=== PATIENT | male | born 1960 | race American Indian/Alaskan Native ===

== ENCOUNTER 2017-02-14 02:32 | Emergency (ER) | payer MEDICAID ==
[2017-02-14 02:32] VITALS: BMI 26.9
[2017-02-14 02:46] VITALS: RESP 20; O2SAT 98
[2017-02-14 03:12] LABS: URINE BILIRUBIN NEGATIVE (NEGATIVE); URINE BLOOD NEGATIVE (NEGATIVE); URINE COLOR Straw (YELLOW); URINE GLUCOSE (UA) NORMAL (Normal); URINE KETONE NEGATIVE (NEGATIVE); URINE LEUKOCYTE ESTERASE NEG Leu/uL (Negative); URINE PROTEIN NEGATIVE (NEGATIVE); URINE UROBILINOGEN NORMAL mg/dL (0.2-1.0); WBC URINE < 1 /hpf (0-5)
--- NOTE | 2017-02-14 03:14 | C.PDOC ---
History Of Present Illness 56 y/o male, with past history of constipation, presents to ED with c/o abdominal pain and bloating sensation for 3 days. Patient reports he has not had bowel movement in 3 days. Pt has past h/o of chronic constipation and is on stool softeners with no relief. Denies fever, nausea, vomiting, or urinary symptoms. Notes he had normal colonoscopy and endoscopy "a few months ago." Otherwise, patient denies any other complaints. Time Seen by Provider: 02/14/17 02:50 Chief Complaint (Nursing): Abdominal Pain History Per: Patient History/Exam Limitations: no limitations Onset/Duration Of Symptoms: Days Current Symptoms Are (Timing): Still Present Location Of Pain/Discomfort: RLQ, Epigastric Radiation Of Pain To:: None Quality Of Discomfort: "Pain" Associated Symptoms: Constipation. denies: Fever, Nausea, Vomiting, Diarrhea, Urinary Symptoms Last Bowel Movement: Days Ago (3) Recent travel outside of the [place]: No Past Medical History Reviewed: Historical Data, Nursing Documentation, Vital Signs Vital Signs: Last Vital Signs Temp 98.1 F 02/14/17 02:41 Pulse 62 02/14/17 02:41 Resp 20 02/14/17 02:41 BP 154/94 H 02/14/17 02:41 Pulse Ox 98 02/14/17 03:15 - Medical History PMH: Colonic Polyps, Gastritis, HTN, Hypercholesterolemia, Hyperlipidemia Surgical History: Endoscopy Family History: States: Unknown Family Hx - Social History Hx Alcohol Use: Yes Hx Substance Use: No - Immunization History Hx Tetanus Toxoid Vaccination: Yes Hx Influenza Vaccination: Yes Hx Pneumococcal Vaccination: Yes Review Of Systems Except As Marked, All Systems Reviewed And Found Negative. Constitutional: Negative for: Fever Cardiovascular: Negative for: Chest Pain Respiratory: Negative for: Cough, Shortness of Breath, Wheezing Gastrointestinal: Positive for: Abdominal Pain, Constipation. Negative for: Nausea, Vomiting, Diarrhea, Rectal Pain Genitourinary: Negative for: Dysuria, Hematuria Skin: Negative for: Rash Physical Exam - Physical Exam Appears: Non-toxic, No Acute Distress Skin: Normal Color, Warm, Dry Head: Atraumatic, Normacephalic Oral Mucosa: Moist Chest: Symmetrical Cardiovascular: Rhythm Regular Respiratory: Normal Breath Sounds, No Rales, No Rhonchi, No Wheezing Gastrointestinal/Abdominal: Tenderness (epigastric, RLQ), Distention, No Guarding, No Rebound Back: No CVA Tenderness Extremity: Normal ROM, Capillary Refill (< 2 sec. ) Neurological/Psych: Oriented x3, Normal Speech, Normal Cognition ED Course And Treatment - Laboratory Results Result Diagrams: 02/14/17 03:07 02/14/17 03:07 O2 Sat by Pulse Oximetry: 98 (RA) Pulse Ox Interpretation: Normal - Other Rad Abd XR X-Ray: Interpreted by Me, Viewed By Me Interpretation: Fecal impaction Progress Note: Labs, obstructive series x-ray ordered. Fleet enema and lactulose PO ordered- with 2 BM in ER. 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 - Scribe Statement The provider has reviewed the documentation as recorded by the Neil Robins Provider Scribe Attestation: All medical record entries made by the Ignacioibfrancy were at my direction and personally dictated by me. I have reviewed the chart and agree that the record accurately reflects my personal performance of the history, physical exam, medical decision making, and the department course for this patient. I have also personally directed, reviewed, and agree with the discharge instructions and disposition.
[2017-02-14 03:24] LABS: BILIRUBIN,TOTAL 0.4 mg/dL (0.2-1.3)
[2017-02-14 03:25] LABS: ALB/GLOB RATIO 1.3 (1.0-2.1); BASO % 0.5 % (0.0-2.0); CALCIUM 8.9 mg/dl (8.6-10.4); EOS # 0.3 K/uL (0.0-0.7); EOS % 5.1 % (0.0-4.0); HEMATOCRIT 39.6 % (35.0-51.0); LYMPH # 1.3 K/uL (1.0-4.3); LYMPH % 26.2 % (20.0-40.0); MEAN CELL VOLUME 92.2 fL (80.0-94.0); MEAN CORPUSCULAR HEMOGLOBIN 31.2 pg (27.0-31.0); MEAN CORPUSCULAR HGB CONC 33.8 g/dL (33.0-37.0); MEAN PLATELET VOLUME 8.1 fL (7.2-11.7); MONO # 0.5 K/uL (0.0-0.8); MONO % 9.5 % (0.0-10.0); NRBC % 0.1 % (0.0-2.0); RED CELL DISTRIBUTION WIDTH 13.5 % (11.5-14.5); TOTAL PROTEIN 7.3 g/dL (6.3-8.3); WHITE BLOOD COUNT 5.1 K/uL (4.8-10.8)
[2017-02-14 04:35] VITALS: BP 148/70; PULSE 81; TEMP 98
--- NOTE | 2017-02-14 08:34 | RAD ---
PROCEDURE: Radiographs of the chest and abdomen (obstructive series) HISTORY: abd pain, constipation COMPARISON: No prior. TECHNIQUE: AP radiograph of the chest, with upright and supine radiographs of the abdomen. FINDINGS: CHEST: Lungs: Clear. Cardiovascular: Normal size heart. No pulmonary vascular congestion. Pleura: No pleural fluid. No pneumothorax. Other findings: None. ABDOMEN AND PELVIS: Bowel: Nonobstructive bowel gas pattern. Extensive stool throughout the ascending colon. Free air: Not noted. Bones: The osseous structures demonstrate degenerative changes. Other findings: None. IMPRESSION: Nonobstructive bowel gas pattern. If there is continued suspicion of bowel obstruction, CT of the abdomen and pelvis should be obtained.
== END 2017-02-14 04:35 | disposition home or self-care (01) ==
LOC: C.ER 02:32
DX: K59.00 Constipation, unspecified (principal)

== ENCOUNTER 2017-03-18 14:57 | Emergency (ER) | payer MEDICAID ==
[2017-03-18 14:58] VITALS: BMI 26.9
[2017-03-18] MEDS ORDERED: Naproxen 550 mg Tab PO STA (15:38)
[2017-03-18] MEDS ORDERED: Naproxen 550 mg Tab PO ONE (15:41)
--- NOTE | 2017-03-18 15:56 | C.PDOC ---
History Of Present Illness Patient is a 56 year old male who presents to the ER with a complaint of right hand swelling that began on Sunday. Patient states he woke up with the swelling and denies trauma, Hx of similar episodes, and gout. (-) fever (-) change in sensation Time Seen by Provider: 03/18/17 15:26 Chief Complaint (Nursing): Upper Extremity Problem/Injury History Per: Patient History/Exam Limitations: no limitations Onset/Duration Of Symptoms: Days (Since Sunday) Current Symptoms Are (Timing): Still Present Quality: Other (Swelling) Recent travel outside of the [place]: No Past Medical History Reviewed: Historical Data, Nursing Documentation, Vital Signs Vital Signs: Last Vital Signs Temp 98.2 F 03/18/17 16:15 Pulse 62 03/18/17 16:15 Resp 16 03/18/17 16:15 BP 136/72 03/18/17 16:15 Pulse Ox 98 03/18/17 19:36 - Medical History PMH: Colonic Polyps, Gastritis, HTN, Hypercholesterolemia, Hyperlipidemia Surgical History: Endoscopy Family History: States: Unknown Family Hx - Social History Hx Alcohol Use: Yes Hx Substance Use: No - Immunization History Hx Tetanus Toxoid Vaccination: Yes Hx Influenza Vaccination: Yes Hx Pneumococcal Vaccination: Yes Review Of Systems Musculoskeletal: Positive for: Hand Pain (Right swelling) Physical Exam - Physical Exam Appears: Well, Non-toxic, No Acute Distress Skin: Warm, Dry Head: Atraumatic, Normacephalic Eye(s): bilateral: Normal Inspection, EOMI Nose: Normal Oral Mucosa: Moist Chest: Symmetrical, No Tenderness Respiratory: No Accessory Muscle Use, Other (Speaking in complete sentences) Extremity: Normal ROM, No Tenderness (no obvious tenderness), Capillary Refill ( < 2sec), Swelling (Dorsal aspect of right hand), Other (Erythema to dorsal aspect of right hand w/ less then 1 cm mobile mass.) Pulses: Left Radial: Normal, Right Radial: Normal Neurological/Psych: Oriented x3, Normal Speech, Normal Motor, Normal Sensation, Other (No focal deficits) ED Course And Treatment O2 Sat by Pulse Oximetry: 98 (Room air) Pulse Ox Interpretation: Normal Progress Note: Anaprox and tetanus vaccine administered. X-ray of the right hand ordered, results were negative for abnormalities. Patient was advised on the signs and concerns for infection including increased swelling or redness, advised to follow up with PMD and to return to the ER if symptoms worsen. Case discussed with Dr Richey, agreed upon plan and treatment. Disposition - Disposition Referrals: Mayito Hendrickson MD [Staff Provider] - Disposition: HOME/ ROUTINE Disposition Time: 15:54 Condition: STABLE Additional Instructions: Wound check in 2 days or sooner if symtpoms persist or worsen including fever, increased swelling or redness. Prescriptions: Clindamycin [Cleocin] 300 mg PO Q6 #28 cap Naproxen [Naprosyn] 1 tab PO BID PRN #20 tab PRN Reason: Pain Instructions: Cellulitis (ED) - Clinical Impression Clinical Impression: Cellulitis, Ganglion cyst - Scribe Statement The provider has reviewed the documentation as recorded by the Scribfrancy Hanley All medical record entries made by the Ignacioibfrancy were at my direction and personally dictated by me. I have reviewed the chart and agree that the record accurately reflects my personal performance of the history, physical exam, medical decision making, and the department course for this patient. I have also personally directed, reviewed, and agree with the discharge instructions and disposition.
[2017-03-18 16:16] VITALS: BP 136/72; PULSE 62; RESP 16; TEMP 98.2
--- NOTE | 2017-03-18 17:10 | RAD ---
Right hand three views History: Pain. Comparison: None available. Findings: Productive change at the distal tuft of the 1st through 4th digits, nonspecific. Mild narrowing of the 2nd through 5th PIP and DIP joint spaces. Mild narrowing of the 1st carpometacarpal joint space. Mild to moderate narrowing of the radiocarpal joint space. Mild productive change at the ulnar tuberosity. No evidence for acute displaced fracture or dislocation. Impression: Productive change at the distal tuft of the 1st through 4th digits, nonspecific. Mild narrowing of the 2nd through 5th PIP and DIP joint spaces. Mild narrowing of the 1st carpometacarpal joint space. Mild to moderate narrowing of the radiocarpal joint space. Mild productive change at the ulnar tuberosity. No evidence for acute displaced fracture or dislocation. If pain persists, consider MRI.
[2017-03-18 19:29] VITALS: O2SAT 98
== END 2017-03-18 16:16 | disposition home or self-care (01) ==
LOC: C.ER 14:57
DX: L03.113 Cellulitis of right upper limb (principal); M67.441 Ganglion, right hand

== ENCOUNTER 2017-06-21 00:41 | Emergency (ER) | payer SELFPAY ==
[2017-06-21 00:41] VITALS: BMI 26.9
[2017-06-21 01:13] VITALS: RESP 16
[2017-06-21] MEDS ORDERED: Iohexol 240 (50 ml) PO STA (02:38)
[2017-06-21] MEDS ORDERED: Sodium Chloride 0.9% 1,000 ML IV ONE (02:38)
--- NOTE | 2017-06-21 02:38 | C.PDOC ---
History Of Present Illness 57 y/o male presents to the ER c/o lack of bowel movements for a week. Patient notes he gave himself an enema and he saw blood when wiping after 5 days ago. Patient now feels bloated with mild nausea. Denies fever, chills, vomiting, or any other complaints. pt had colonoscopy in last few years. Time Seen by Provider: 06/21/17 02:14 Chief Complaint (Nursing): Abdominal Pain History Per: Patient History/Exam Limitations: no limitations Onset/Duration Of Symptoms: Days Current Symptoms Are (Timing): Still Present Severity: Mild Radiation Of Pain To:: None Associated Symptoms: Nausea. denies: Fever, Chills, Vomiting, Diarrhea, Urinary Symptoms Exacerbating Factors: None Alleviating Factors: None Recent travel outside of the [place]: No Additional History Per: Patient Past Medical History Reviewed: Historical Data, Nursing Documentation, Vital Signs Vital Signs: Last Vital Signs Temp 98.2 F 06/21/17 05:09 Pulse 56 L 06/21/17 05:09 Resp 16 06/21/17 05:09 BP 149/94 H 06/21/17 05:09 Pulse Ox 97 06/22/17 09:51 - Medical History PMH: Colonic Polyps, Gastritis, HTN, Hypercholesterolemia, Hyperlipidemia Denies: Chronic Kidney Disease Surgical History: Endoscopy Family History: States: Unknown Family Hx - Social History Hx Alcohol Use: No Hx Substance Use: No - Immunization History Hx Tetanus Toxoid Vaccination: Yes Hx Influenza Vaccination: Yes Hx Pneumococcal Vaccination: Yes Review Of Systems Constitutional: Negative for: Fever, Chills Gastrointestinal: Positive for: Nausea, Constipation (Bowel incontinence), Other (bloating). Negative for: Vomiting, Abdominal Pain Skin: Negative for: Rash Physical Exam - Physical Exam Appears: Non-toxic, No Acute Distress Skin: Warm, Dry Head: Atraumatic, Normacephalic Cardiovascular: Rhythm Regular Respiratory: Normal Breath Sounds, No Rales, No Rhonchi, No Wheezing Gastrointestinal/Abdominal: Soft, No Tenderness, No Distention, Other (Mildly bloated) Rectal: No Other (No stool in vault, no bleeding noted. 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 EXAM DATE/TIME: Exam ordered 06/21/2017 2:38 AM. CLINICAL HISTORY: 57 years old, male; Pain; Abdominal pain; Prior surgery; Surgery type: Back and hernia surgery;. Patient HX: 11-06-16; Additional info: Abd pain. TECHNIQUE: Axial computed tomography images of the abdomen and pelvis with intravenous contrast. All CT. scans at this facility use one or more dose reduction techniques, viz. : automated exposure control;. ma/kV adjustment per patient size (including targeted exams where dose is matched to indication; i.e. head); or iterative reconstruction technique. Coronal and sagittal reformatted images were created and reviewed. CONTRAST: 100 mL of [id number] administered intravenously. COMPARISON: No relevant prior studies available. FINDINGS: Lower thorax: No acute findings. ABDOMEN: Liver: Mild fatty liver. Gallbladder and bile ducts : Unremarkable. No calcified stones. No ductal dilation. Pancreas: Unremarkable. No mass. No ductal dilation. Spleen: Unremarkable. No splenomegaly. Adrenals: Unremarkable. No mass. Kidneys and ureters: Low- density structures in both kidneys are probably cysts however are not. completely characterized. No hydronephrosis. Stomach and bowel: Moderate fecal retention. Diverticulosis no diverticulitis. No obstruction. Appendix: No findings to suggest acute appendicitis. PELVIS: Bladder: Unremarkable. No mass. Reproductive: Apparent right scrotal hydrocele. ABDOMEN and PELVIS: Intraperitoneal space: Unremarkable. No free air. No significant fluid collection. Bones/joints: Partial fusion sacroiliac joints. Degenerative change in the spine. Prior left. laminectomies at L4 and L5 No acute fracture. No dislocation. Soft tissues: Previous inguinal herniorrhaphies. Vasculature: Unremarkable. No abdominal aortic aneurysm. Lymph nodes: Unremarkable. No enlarged lymph nodes. IMPRESSION: 1. Moderate fecal retention. 2. Mild fatty liver. Medical Decision Making Medical Decision Making: Impression: 57 y/o male presents to the ER c/o lack of bowel movements for a week. Plans: * CT Abd/ pel w/ * Omnipaque * Enulose * Zofran * IV fluids 558 am discussed with pt findings of constipation on ct scan. pt advised to increase fluid and fiber intake and f/u in medical clinic. will d/c with lactulose. Disposition Counseled Patient/Family Regarding: Studies Performed, Diagnosis, Need For Followup, Rx Given - Disposition Referrals: [facility] [Outside] Disposition: HOME/ ROUTINE Disposition Time: 06:00 Condition: STABLE Additional Instructions: Drink more fluids; water and prune juice recommended. Eat more fruits and vegetables, increase fiber in diet- suggest Benefiber or Metamucil. Please follow up in clinic. Return to ER for any worsening of symptoms or other concerns. Prescriptions: Lactulose 20 gm PO DAILY #120 ml Instructions: Constipation (ED), High Fiber Diet (ED) Forms: [facility] (Persian), General Discharge Instructions - Clinical Impression Clinical Impression: Abdominal bloating, Constipation - Scribe Statement The provider has reviewed the documentation as recorded by the Scribe Tino thomson All medical record entries made by the Scribe were at my direction and personally dictated by me. I have reviewed the chart and agree that the record accurately reflects my personal performance of the history, physical exam, medical decision making, and the department course for this patient. I have also personally directed, reviewed, and agree with the discharge instructions and disposition.
[2017-06-21] MEDS ORDERED: Sodium Chloride 0.9% 1,000 ML ONE (03:05)
[2017-06-21] MEDS ORDERED: Iohexol 240 (50 ml) ONE (03:05)
[2017-06-21 03:14] LABS: BASO % 0.6 % (0.0-2.0); EOS # 0.4 K/uL (0.0-0.7); EOS % 6.4 % (0.0-4.0); HEMATOCRIT 44.5 % (35.0-51.0); LYMPH # 1.6 K/uL (1.0-4.3); LYMPH % 25.6 % (20.0-40.0); MEAN CELL VOLUME 92.5 fL (80.0-94.0); MEAN CORPUSCULAR HEMOGLOBIN 30.7 pg (27.0-31.0); MEAN CORPUSCULAR HGB CONC 33.2 g/dL (33.0-37.0); MEAN PLATELET VOLUME 7.9 fL (7.2-11.7); MONO # 0.6 K/uL (0.0-0.8); MONO % 9.9 % (0.0-10.0); NRBC % 0.1 % (0.0-2.0); RED CELL DISTRIBUTION WIDTH 13.8 % (11.5-14.5); WHITE BLOOD COUNT 6.4 K/uL (4.8-10.8)
[2017-06-21 03:41] LABS: CHLORIDE 102 mmol/L (98-107); SODIUM 141 mmol/L (132-148)
[2017-06-21 03:42] LABS: POTASSIUM 4.6 mmol/L (3.6-5.2)
[2017-06-21 03:44] LABS: ALB/GLOB RATIO 1.1 (1.0-2.1); ALKALINE PHOSPHATASE 75 U/L (38-126); ALT/SGPT 39 U/L (21-72); AST/SGOT 33 U/L (17-59); BILIRUBIN,TOTAL 0.7 mg/dL (0.2-1.3); BLOOD UREA NITROGEN 22 mg/dL (9-20); CARBON DIOXIDE 26 mmol/L (22-30); GFR AFRICAN-AMERICAN > 60; TOTAL PROTEIN 7.9 g/dL (6.3-8.3)
[2017-06-21 03:45] LABS: CALCIUM 8.9 mg/dl (8.6-10.4); GLUCOSE,RANDOM 89 mg/dL (75-110)
[2017-06-21] MEDS ORDERED: Iohexol 350mg/ml 100 ML ONE (04:35)
[2017-06-21 05:10] VITALS: BP 149/94; PULSE 56; TEMP 98.2
[2017-06-21 06:04] VITALS: O2SAT 97
--- NOTE | 2017-06-21 08:43 | CT ---
PROCEDURE: CT Abdomen and Pelvis with contrast HISTORY: abd pain COMPARISON: None. TECHNIQUE: Contrast dose: Omnipaque 350, 100 cc Radiation dose: Total exam DLP = 585 mGy-cm. This CT exam was performed using one or more of the following dose reduction techniques: Automated exposure control, adjustment of the mA and/or kV according to patient size, and/or use of iterative reconstruction technique. FINDINGS: LOWER THORAX: Unremarkable. LIVER: Mild diffuse fatty infiltration liver is appreciated without definite intrahepatic biliary dilatation or defined mass in the interval. GALLBLADDER AND BILE DUCTS: Moderate gallbladder distention is appreciated with the gallbladder otherwise unremarkable. PANCREAS: Unremarkable. No gross lesion or ductal dilatation. SPLEEN: Unremarkable. ADRENALS: Unremarkable. No mass. KIDNEYS AND URETERS: No hydronephrosis or perinephric reaction is appreciated bilaterally. There is no radiodense urolithiasis either. Stable 1.9 cm cyst seen at the midpole right kidney posteriorly with a tiny lucency identified at the lower pole too small to characterize. There are additional tiny lucencies identified in the left kidney upper mid and lower pole which are also too small to characterize. A stable dominant cyst in the left kidney measures 4 point 2 cm at the upper pole once again. 1.2 cm upper pole left renal cyst appears smaller at this time measure 1.0 cm. VASCULATURE: Unremarkable. No aortic aneurysm. BOWEL: Unremarkable. No obstruction. No gross mural thickening. Nonacute diverticular changes seen associated with the cecum and ascending colon as well as the proximal sigmoid colon. APPENDIX: Normal appendix. PERITONEUM: Unremarkable. No free fluid. No free air. LYMPH NODES: Unremarkable. No enlarged lymph nodes. BLADDER: Unremarkable. REPRODUCTIVE: Normal appearing prostate glands identified once again. . BONES: No acute fracture. OTHER FINDINGS: None. IMPRESSION: 1. No acute abdominal pelvic findings as discussed above. 2. No significant interval change in bilateral renal cystic changes as discussed above. Renal sonographic follow remains advised nevertheless bilaterally. 3. Nonacute right and left segmental colonic diverticular changes again evident.
== END 2017-06-21 06:42 | disposition home or self-care (01) ==
LOC: C.ER 00:41
DX: K59.00 Constipation, unspecified (principal); R14.0 Abdominal distension (gaseous)
CPT/HCPCS: 74177; 80053; 83690; 85025; 96374; 99284; G0328; J2405; J7040; Q9966; Q9967

== ENCOUNTER 2018-03-26 14:14 | Emergency (ER) | payer OTHER ==
[2018-03-26 14:14] VITALS: BMI 26.9
[2018-03-26 14:19] VITALS: O2SAT 99
--- NOTE | 2018-03-26 15:03 | C.PDOC ---
History Of Present Illness 58 yo male w/PMHx of HTN, high cholesterol, come in for evaluation of cold sx for past few weeks associated with nasal congestion, cough that became productive with thick green sputum. Pt also reports, intermittent epigastric discomfort, constipation for past month. Pt admits, no change in appetite or food intolerance, 'had beef ribs yesterday with beans and mashed potatoes. Today in AM, was going to work and had some stomach pain". otherwise, pt denies fever, chills, headache, dizziness, neck pain, drooling, dysphagia, dyspnea, SOB , wheezing, abd. p[ain, V/D, UTI sx. Ambulate to Ed for evaluation, not in nay apparent distress. Time Seen by Provider: 03/26/18 14:27 Chief Complaint (Nursing): Abdominal Pain History Per: Patient Past Medical History Reviewed: Historical Data, Nursing Documentation, Vital Signs Vital Signs: Last Vital Signs Temp 98.1 F 03/26/18 14:17 Pulse 71 03/26/18 14:17 Resp 16 03/26/18 14:17 BP 120/81 03/26/18 14:17 Pulse Ox 99 03/26/18 14:17 - Medical History PMH: Colonic Polyps, Gastritis, HTN, Hypercholesterolemia, Hyperlipidemia Denies: Chronic Kidney Disease Surgical History: Endoscopy Family History: States: Unknown Family Hx - Social History Hx Alcohol Use: No Hx Substance Use: No - Immunization History Hx Tetanus Toxoid Vaccination: Yes Hx Influenza Vaccination: Yes Hx Pneumococcal Vaccination: Yes Review Of Systems Except As Marked, All Systems Reviewed And Found Negative. Constitutional: Negative for: Fever, Chills ENT: Positive for: Nose Discharge, Nose Congestion. Negative for: Ear Discharge , Throat Pain, Throat Swelling Cardiovascular: Negative for: Chest Pain, Palpitations, Edema, Light Headedness Respiratory: Positive for: Cough, Sputum. Negative for: Shortness of Breath, Wheezing Gastrointestinal: Positive for: Abdominal Pain, Constipation. Negative for: Nausea, Vomiting, Diarrhea, Melena, Hematochezia, Hematemesis Genitourinary: Negative for: Dysuria Musculoskeletal: Negative for: Neck Pain, Back Pain Skin: Negative for: Rash Neurological: Negative for: Altered Mental Status, Headache, Dizziness Physical Exam - Physical Exam Appears: Well, Non-toxic, No Acute Distress Skin: Normal Color, Warm, Dry, No Rash Head: Normacephalic Eye(s): bilateral: PERRL Ear(s): Bilateral: Normal Nose: No Flaring, No Discharge Oral Mucosa: Moist, No Drooling Throat: No Erythema, No Drooling Neck: Trachea Midline, Supple Cardiovascular: Rhythm Regular, No Murmur, No JVD Respiratory: No Decreased Breath Sounds, No Accessory Muscle Use, No Stridor, No Wheezing Gastrointestinal/Abdominal: Soft, No Tenderness, No Distention, No Guarding, No Rebound Back: No CVA Tenderness Extremity: Normal ROM, No Deformity, No Swelling Neurological/Psych: Oriented x3, Normal Speech ED Course And Treatment O2 Sat by Pulse Oximetry: 99 Pulse Ox Interpretation: Normal - Radiology CXR: Interpreted by Me, Viewed By Me, Read By Radiologist - Other Rad ABd, 2 views X-Ray: Interpreted by Me, Viewed By Me Interpretation: (-) air-fluid level, (+) gas pattern c/w constipation Progress Note: On re-eval, pt is afebrile, hemodynamicaly stable. Non-toxic. Tolerate po well in ED. PulsEOx 99% RA. ENT: no acute findings. neck: Supple , (-) meningeal sign, (-) JVD. Lungs: CTA B/L, BS equal B/L. CVS: (+)S1S2, reg. ABd: benign, (-) guarding, (-) rebound. Back: (-) CVA tenderness. CXR- no acute finidngs. ABd, 2 views (-) air-fluid level, (+) constipation. Pt has clinical finidngs c/w bronchitis, constipation. Pt advised. ref. to F/u with PMD In 2-3 days for re-eval. return to ED if any worsening or new changes. Disposition Counseled Patient/Family Regarding: Studies Performed, Diagnosis, Need For Followup, Rx Given - Disposition Referrals: [facility] at [facility] [Outside] Disposition: HOME/ ROUTINE Disposition Time: 15:10 Condition: STABLE Additional Instructions: Encourage fluids Take medication as prescribed Follow up with PMD in 2-3 days for re-evaluation. return to ED if any worsening or new changes. Prescriptions: Albuterol HFA [Ventolin HFA 90 mcg/actuation (8 g)] 1 puff IH Q6 #1 inhaler Azithromycin [Zithromax] 250 mg PO DAILY #4 tab Polyethylene Glycol 3350 [Miralax] 17 gm PO DAILY #1 bottle Instructions: Acute Bronchitis, Constipation in Adults - Clinical Impression Clinical Impression: Constipation, Bronchitis
[2018-03-26] MEDS ORDERED: Albuterol 0.083% Inhal Sol (2.5 mg/3 mL) UD IH STA (15:12)
[2018-03-26] MEDS ORDERED: Albuterol 0.083% Inhal Sol (2.5 mg/3 mL) UD ONE (15:29)
--- NOTE | 2018-03-26 15:43 | RAD ---
HISTORY: Cough COMPARISON: 11/16/2016 and 09/04/2016 TECHNIQUE: Chest PA and lateral FINDINGS: LUNGS: No active pulmonary disease. PLEURA: No significant pleural effusion identified. No pneumothorax apparent. CARDIOVASCULAR: Normal. OSSEOUS STRUCTURES: Thoracic spondylosis-similar Right shoulder arthrosis -similar. Left asymmetrically widened AC joint no change since 2016 VISUALIZED UPPER ABDOMEN: Normal. OTHER FINDINGS: None. IMPRESSION: No active disease.
[2018-03-26 15:53] VITALS: BP 128/84; PULSE 60; RESP 16; TEMP 97.9
--- NOTE | 2018-03-26 16:52 | RAD ---
HISTORY: pain/constipation COMPARISON: 12/02/2016 FINDINGS: BOWEL: Stool retention.. No obstruction. No free air. BONES: Thoraco lumbar spondylosis. Bilateral hip arthrosis appear well corticated 1.5 cm ossification bordering the left greater trochanter- possibly old post trauma and no change OTHER FINDINGS: None. IMPRESSION: Stool retention. No obstruction. No free air Osseous findings as above. No interval pathology noted
== END 2018-03-26 15:52 | disposition home or self-care (01) ==
LOC: C.ER 14:14
DX: J40 Bronchitis, not specified as acute or chronic (principal); K59.00 Constipation, unspecified

== ENCOUNTER 2018-05-03 02:39 | Emergency (ER) | payer OTHER ==
[2018-05-03 02:39] VITALS: BMI 26.9
[2018-05-03 02:51] VITALS: O2SAT 99
[2018-05-03] MEDS ORDERED: Magnesium Citrate Oral SOL (300 ml) PO ONE (04:06)
--- NOTE | 2018-05-03 04:41 | C.PDOC ---
History Of Present Illness 58 year old male presents to the ED for evaluation of generalized abdominal pain. Patient reports he has not had a bowel movement in 5 days. He tried taking Miralax without improvement. Pt has a h/o of similar symptoms in the past. Reports eating "pasta and beef last night." Reports being refered to GI specialist by PMD, has not followed up yet. Patient denies fever, nausea, vomiting, chest pain. Time Seen by Provider: 05/03/18 03:01 Chief Complaint (Nursing): GI Problem History Per: Patient History/Exam Limitations: no limitations Onset/Duration Of Symptoms: Days (5) Current Symptoms Are (Timing): Still Present Additional History Per: Patient Past Medical History Reviewed: Historical Data, Nursing Documentation, Vital Signs Vital Signs: Last Vital Signs Temp 98.5 F 05/03/18 05:15 Pulse 69 05/03/18 05:15 Resp 18 05/03/18 05:15 BP 129/82 05/03/18 05:15 Pulse Ox 99 05/03/18 05:15 - Medical History PMH: Colonic Polyps, Gastritis, HTN, Hypercholesterolemia, Hyperlipidemia Denies: Chronic Kidney Disease Surgical History: Endoscopy Family History: States: Unknown Family Hx - Social History Hx Alcohol Use: No Hx Substance Use: No - Immunization History Hx Tetanus Toxoid Vaccination: Yes Hx Influenza Vaccination: Yes Hx Pneumococcal Vaccination: Yes Review Of Systems Constitutional: Negative for: Fever, Chills Gastrointestinal: Positive for: Abdominal Pain, Constipation. Negative for: Nausea, Vomiting Physical Exam - Physical Exam Appears: Non-toxic, No Acute Distress Skin: Normal Color, Warm, Dry Head: Atraumatic, Normacephalic Eye(s): bilateral: Normal Inspection, EOMI Nose: Normal Oral Mucosa: Moist Neck: Normal ROM, Supple Chest: Symmetrical, No Deformity, No Tenderness Cardiovascular: Rhythm Regular Respiratory: Normal Breath Sounds, No Rales, No Rhonchi, No Wheezing Gastrointestinal/Abdominal: Soft, Tenderness (diffusely) Extremity: Normal ROM, Capillary Refill (less than 2 seconds) Neurological/Psych: Oriented x3, Normal Speech, Normal Cognition ED Course And Treatment O2 Sat by Pulse Oximetry: 99 (on RA) Pulse Ox Interpretation: Normal Progress Note: Obstructive Series Abdomen ordered. Magnesium Citrate PO and Fleet [place] given. On re-examination, patient request to be discharged. REports he prefers to do the enema at home. Afebrile. TOlerating PO. He is advised to follow up with his PMD within 1-2 days for further evaluation and/or return to the ED if symptoms persist or worsen. 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 - Scribe Statement The provider has reviewed the documentation as recorded by the Scribe (Veronica Hendrickson) All medical record entries made by the Scribe were at my direction and personally dictated by me. I have reviewed the chart and agree that the record accurately reflects my personal performance of the history, physical exam, medical decision making, and the department course for this patient. I have also personally directed, reviewed, and agree with the discharge instructions and disposition.
[2018-05-03] MEDS ORDERED: Magnesium Citrate Oral SOL (300 ml) ONE (05:09)
[2018-05-03 05:16] VITALS: BP 129/82; PULSE 69; RESP 18; TEMP 98.5
--- NOTE | 2018-05-03 08:51 | RAD ---
PROCEDURE: Radiographs of the chest and abdomen (obstructive series) HISTORY: Abdominal pain COMPARISON: 03/26/2018. TECHNIQUE: AP radiograph of the chest, with upright and supine radiographs of the abdomen. FINDINGS: CHEST: Lungs: The lungs are well inflated and clear. Cardiovascular: Normal size heart. No pulmonary vascular congestion. Pleura: No pleural fluid. No pneumothorax. Other findings: None. ABDOMEN AND PELVIS: Bowel: There is large amount of stool in the colon. No evidence of mechanical obstruction. Free air: None. Bones: Unremarkable. Other findings: None. IMPRESSION: Severe constipation. No evidence of mechanical bowel obstruction. Clear lungs.
== END 2018-05-03 05:15 | disposition home or self-care (01) ==
LOC: C.ER 02:39 → SUPCPDRO 02:39 → C.ER 05:15
DX: K59.00 Constipation, unspecified (principal)

== ENCOUNTER 2018-08-20 11:57 | Emergency (ER) | payer OTHER ==
[2018-08-20 11:57] VITALS: BMI 26.9
[2018-08-20 12:34] VITALS: RESP 18
[2018-08-20] MEDS ORDERED: Naproxen 550 mg Tab PO STA (13:03)
[2018-08-20] MEDS ORDERED: Naproxen 550 mg Tab PO ONE (13:15)
[2018-08-20 13:51] VITALS: BP 132/68; PULSE 62; TEMP 97.7; O2SAT 97
--- NOTE | 2018-08-20 14:01 | C.PDOC ---
History Of Present Illness 58 year old male presents to the ED for evaluation of right hand swelling and pain since last night. Patient reports the pain/swelling was onset. 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 Denies trauma, numbness, tingling, fever, and any other associated symptoms. Time Seen by Provider: 08/20/18 12:58 Chief Complaint (Nursing): Upper Extremity Problem/Injury History Per: Patient History/Exam Limitations: no limitations Onset/Duration Of Symptoms: Hrs Current Symptoms Are (Timing): Still Present Past Medical History Reviewed: Historical Data, Nursing Documentation, Vital Signs Vital Signs: Last Vital Signs Temp 97.7 F 08/20/18 13:50 Pulse 62 08/20/18 13:50 Resp 18 08/20/18 13:50 BP 132/68 08/20/18 13:50 Pulse Ox 97 08/20/18 13:50 - Medical History PMH: Colonic Polyps, Gastritis, HTN, Hypercholesterolemia, Hyperlipidemia Denies: Chronic Kidney Disease Surgical History: Endoscopy Family History: States: Unknown Family Hx - Social History Hx Alcohol Use: No Hx Substance Use: No - Immunization History Hx Tetanus Toxoid Vaccination: No Hx Influenza Vaccination: Yes Hx Pneumococcal Vaccination: No Review Of Systems Except As Marked, All Systems Reviewed And Found Negative. Constitutional: Negative for: Fever, Other (trauma.) Musculoskeletal: Positive for: Other (right hand swelling and pain.) Neurological: Negative for: Weakness, Numbness, Incoordination Physical Exam - Physical Exam Appears: Well, Non-toxic, No Acute Distress Skin: Normal Color, Warm, Dry, No Other (rigth wrist: no fluctuance.) Head: Atraumatic, Normacephalic Eye(s): bilateral: Normal Inspection Extremity: Normal ROM (of the right hand/arm.), No Tenderness, Capillary Refill (less than 2 seconds.), No Deformity, Swelling (over the right dorsal of the right wrist. ) Pulses: Left Radial: Normal, Right Radial: Normal Neurological/Psych: Oriented x3, Normal Speech, Normal Motor, Normal Sensation, Normal Reflexes ED Course And Treatment O2 Sat by Pulse Oximetry: 97 (RA) Pulse Ox Interpretation: Normal Medical Decision Making Medical Decision Making: Plan: --Anaprox. --Ultram --Prednisone. Progress/Update: Possible tendinitis. Possible ganglion cyst. Patient stable for discharge home. Prescribed Prednisone and Naproxen. Disposition - Disposition Referrals: Marcos Delgado MD [Staff Provider] - Disposition: HOME/ ROUTINE Disposition Time: 14:00 Condition: STABLE Additional Instructions: Follow up with the medical doctor within 1-2 days. Return if worsened. 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 - Scribe Statement The provider has reviewed the documentation as recorded by the Scribe (Pushpa Mcleod) All medical record entries made by the Scribe were at my direction and personally dictated by me. I have reviewed the chart and agree that the record accurately reflects my personal performance of the history, physical exam, medical decision making, and the department course for this patient. I have also personally directed, reviewed, and agree with the discharge instructions and disposition.
== END 2018-08-20 14:05 | disposition home or self-care (01) ==
LOC: C.ER 11:57
DX: M77.8 Other enthesopathies, not elsewhere classified (principal)

== ENCOUNTER 2018-08-28 18:09 | Emergency (ER) | payer OTHER ==
[2018-08-28] MEDS ORDERED: Naproxen 550 mg Tab PO STA (18:19)
[2018-08-28 18:20] VITALS: BP 121/80; PULSE 61; RESP 20; TEMP 97.7; O2SAT 99; BMI 25.8
[2018-08-28] MEDS ORDERED: Naproxen 550 mg Tab PO ONE (18:24)
--- NOTE | 2018-08-28 18:29 | C.PDOC ---
History Of Present Illness Patient presents to ED c/o right elbow pain for the past 4 days. Pain worsens with movement of right elbow. He states the pain began after he lifted heavy boxes at work. Patient denies direct trauma, fever, rash, sensory changes. He is right hand dominant. Time Seen by Provider: 08/28/18 18:18 Chief Complaint (Nursing): Upper Extremity Problem/Injury History Per: Patient History/Exam Limitations: no limitations Quality: "Pain" Severity: Moderate Exacerbating Factor(s): Movement Past Medical History Reviewed: Historical Data, Nursing Documentation, Vital Signs Vital Signs: Last Vital Signs Temp 97.7 F 08/28/18 18:15 Pulse 61 08/28/18 18:15 Resp 20 08/28/18 18:15 BP 121/80 08/28/18 18:15 Pulse Ox 99 08/28/18 18:15 - Medical History PMH: Colonic Polyps, Gastritis, HTN, Hypercholesterolemia, Hyperlipidemia Surgical History: Endoscopy Family History: States: No Known Family Hx - Social History Hx Alcohol Use: No Hx Substance Use: No - Immunization History Hx Tetanus Toxoid Vaccination: Yes Hx Influenza Vaccination: Yes Hx Pneumococcal Vaccination: Yes Review Of Systems Constitutional: Negative for: Fever, Chills Musculoskeletal: Positive for: Other (right elbow pain, worse with movement). Negative for: Shoulder Pain Neurological: Negative for: Weakness, Numbness Physical Exam - Physical Exam Appears: Well, Non-toxic, No Acute Distress Skin: Normal Color, Warm, Dry, No Rash Oral Mucosa: Moist Cardiovascular: Rhythm Regular Respiratory: Normal Breath Sounds, No Rales, No Rhonchi, No Wheezing Extremity: Tenderness (right elbow mild TTP, greatest at lateral aspect/lateral epicondyle), Capillary Refill (< 2 sec all digits ), No Deformity, No Swelling Extremity: Bilateral: Atraumatic, Normal Color And Temperature, Normal ROM Pulses: Left Radial: Normal, Right Radial: Normal Neurological/Psych: Oriented x3, Normal Sensation Gait: Steady ED Course And Treatment O2 Sat by Pulse Oximetry: 99 (RA) Pulse Ox Interpretation: Normal Progress Note: Xray of right elbow ordered and reviewed. Patient given PO Naprosyn for pain. Disposition Counseled Patient/Family Regarding: Studies Performed, Diagnosis, Need For Followup, Rx Given - Disposition Referrals: Loyd Jacob III, MD [Staff Provider] - [facility] [Outside] Disposition: HOME/ ROUTINE Disposition Time: 18:50 Condition: STABLE Additional Instructions: FOLLOW UP WITH ORTHOPEDICS WITHIN 1 WEEK USE MEDICATION NEEDED FOR PAIN REST ELBOW MUCH POSSIBLE RETURN TO ER IF SYMPTOMS WORSEN Prescriptions: Naproxen 375 mg PO BID PRN #20 tablet PRN Reason: pain Instructions: Tendonitis (DC), Lateral Epicondylitis Exercises Forms: [employer] (Belgian) Print Language: K[place] - POA Present On Arrival: None - Clinical Impression Clinical Impression: Right elbow tendonitis
--- NOTE | 2018-08-28 18:53 | RAD ---
Date of service: 08/28/2018 PROCEDURE: Radiographs of the right elbow. HISTORY: right elbow pain COMPARISON: No prior. FINDINGS: BONES: No acute fracture. Multiple tiny bony excrescences, nonspecific. JOINTS: Joint space narrowing. SOFT TISSUES: Normal. JOINT EFFUSION: None. OTHER FINDINGS: Triceps tendon enthesophyte. IMPRESSION: No demonstrated fracture or dislocation. Degenerative changes. Nonspecific multi bony excrescences, difficult to characterize, but may represent osteochondromas.
== END 2018-08-28 18:56 | disposition home or self-care (01) ==
LOC: C.ER 18:09
DX: M77.8 Other enthesopathies, not elsewhere classified (principal)

== ENCOUNTER 2018-09-06 05:29 | Emergency (ER) | payer OTHER ==
[2018-09-06 05:29] VITALS: BMI 25.8
[2018-09-06 05:38] VITALS: RESP 20; O2SAT 98
--- NOTE | 2018-09-06 06:23 | C.PDOC ---
History Of Present Illness 58 year old male presents to the ER with a complaint of left sacroilliac discomfort that radiates down his left leg since earlier today. 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 He note the pain is worse with heating and hot shower therapy. Denies acute trauma, weakness, or numbness. Time Seen by Provider: 09/06/18 05:58 Chief Complaint (Nursing): Abdominal Pain History Per: Patient History/Exam Limitations: no limitations Onset/Duration Of Symptoms: Hrs Current Symptoms Are (Timing): Still Present Radiation Of Pain To:: Leg (Left) Quality Of Discomfort: Unable To Describe Associated Symptoms: denies: Other (Weakness, Numbness) Exacerbating Factors: None Alleviating Factors: None Recent travel outside of the [place]: No Past Medical History Reviewed: Historical Data, Nursing Documentation, Vital Signs Vital Signs: Last Vital Signs Temp 98.1 F 09/06/18 05:36 Pulse 89 09/06/18 05:36 Resp 20 09/06/18 05:36 BP 160/89 H 09/06/18 05:36 Pulse Ox 98 09/06/18 05:36 - Medical History PMH: Colonic Polyps, Gastritis, HTN, Hypercholesterolemia, Hyperlipidemia Denies: Chronic Kidney Disease Surgical History: Endoscopy Family History: States: Unknown Family Hx - Social History Hx Alcohol Use: No Hx Substance Use: No - Immunization History Hx Tetanus Toxoid Vaccination: No Hx Influenza Vaccination: Yes Hx Pneumococcal Vaccination: No Review Of Systems Constitutional: Negative for: Fever, Chills Cardiovascular: Negative for: Chest Pain, Palpitations Respiratory: Negative for: Cough, Shortness of Breath Musculoskeletal: Positive for: Other (Left sacroilliac discomfort radiating down left leg) Neurological: Negative for: Weakness, Numbness Physical Exam - Physical Exam Appears: Non-toxic Skin: Normal Color, Warm, Dry Head: Atraumatic, Normacephalic Eye(s): bilateral: Normal Inspection Oral Mucosa: Moist Chest: Symmetrical, No Tenderness Cardiovascular: Rhythm Regular Respiratory: Normal Breath Sounds, No Rales, No Rhonchi, No Wheezing Gastrointestinal/Abdominal: Soft, No Tenderness Back: Other (Mild tenderness left sacroilliac area) Extremity: Normal ROM (x4) Neurological/Psych: Oriented x3, Normal Speech, Normal Motor, Normal Sensation Gait: Steady ED Course And Treatment O2 Sat by Pulse Oximetry: 98 (Room air) Pulse Ox Interpretation: Normal Medical Decision Making Medical Decision Making: L sacro-iliac strain/sprain vs pyriformis syndrome- 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 Instructions: Sacroiliac Joint Pain Forms: [employer] (Cameroonian) - Clinical Impression Clinical Impression: Sacro-iliac pain - Scribe Statement The provider has reviewed the documentation as recorded by the Scribfrancy Hanley All medical record entries made by the Scribe were at my direction and personally dictated by me. I have reviewed the chart and agree that the record accurately reflects my personal performance of the history, physical exam, medical decision making, and the department course for this patient. I have also personally directed, reviewed, and agree with the discharge instructions and disposition.
[2018-09-06 06:39] VITALS: BP 159/70; PULSE 83; TEMP 98
== END 2018-09-06 06:47 | disposition home or self-care (01) ==
LOC: C.ER 05:29
DX: M53.3 Sacrococcygeal disorders, not elsewhere classified (principal)

== ENCOUNTER 2018-11-06 12:03 | Emergency (ER) | payer OTHER ==
[2018-11-06 12:04] VITALS: BMI 25.8
[2018-11-06 13:02] VITALS: BP 152/94; PULSE 65; RESP 18; TEMP 98.3; O2SAT 98
[2018-11-06] MEDS ORDERED: Naproxen 550 mg Tab PO STA (13:26)
[2018-11-06] MEDS ORDERED: Naproxen 550 mg Tab PO ONE (13:44)
--- NOTE | 2018-11-06 14:18 | C.PDOC ---
History Of Present Illness Patient is a 58 year old male who presents to the ED complaining of left sided lower back pain radiating to the left leg that began two days ago. 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 He denies any recent trauma, dysuria, hematuria, abdominal pain, flank pain, or fever. Time Seen by Provider: 11/06/18 13:06 Chief Complaint (Nursing): Back Pain History Per: Patient History/Exam Limitations: no limitations Onset/Duration Of Symptoms: Days (2) Quality Of Discomfort: "Pain" Recent travel outside of the [place]: No Additional History Per: Patient Past Medical History Reviewed: Historical Data, Nursing Documentation, Vital Signs Vital Signs: Last Vital Signs Temp 98.3 F 11/06/18 12:59 Pulse 65 11/06/18 12:59 Resp 18 11/06/18 12:59 BP 152/94 H 11/06/18 12:59 Pulse Ox 98 11/06/18 12:59 - Medical History PMH: Colonic Polyps, Gastritis, HTN, Hypercholesterolemia, Hyperlipidemia Denies: Chronic Kidney Disease Surgical History: Endoscopy Family History: States: Unknown Family Hx - Social History Hx Alcohol Use: No Hx Substance Use: No - Immunization History Hx Tetanus Toxoid Vaccination: No Hx Influenza Vaccination: Yes Hx Pneumococcal Vaccination: No Review Of Systems Constitutional: Negative for: Fever Gastrointestinal: Negative for: Abdominal Pain Genitourinary: Negative for: Dysuria, Hematuria Musculoskeletal: Negative for: Other (flank pain ) Physical Exam - Physical Exam Appears: Non-toxic, Other (in mild pain) Skin: Normal Color, Warm, Dry Head: Atraumatic, Normacephalic Eye(s): bilateral: Normal Inspection Oral Mucosa: Moist Neck: Normal ROM, Supple Chest: Symmetrical, No Deformity Cardiovascular: Rhythm Regular, No Murmur Respiratory: Normal Breath Sounds, No Rales, No Rhonchi, No Wheezing Gastrointestinal/Abdominal: Soft, No Tenderness, No Guarding, No Rebound Back: Paraspinal Tenderness (mild lumbar ), No Other (midline tenderness) Extremity: Normal ROM, Capillary Refill (less than 2 seconds ) Neurological/Psych: Oriented x3, Normal Speech, Normal Cognition Gait: Steady ED Course And Treatment O2 Sat by Pulse Oximetry: 98 (on RA) Pulse Ox Interpretation: Normal - Other Rad X-Ray LS Spine X-Ray: Viewed By Me, Read By Radiologist Interpretation: FINDINGS: BONES: Alignment appears satisfactory. No listhesis. No acute displaced fracture identified. Multilevel degenerative changes including anterior osteophyte formation. Facet hypertrophy. DISC SPACES: Intervertebral disc space narrowing with vacuum disc phenomenon at L5-S1. OTHER FINDINGS: None. IMPRESSION: Multilevel degenerative changes. Progress Note: X-Ray LS Spine ordered and reviewed. Flexeril 10 mg PO and Anaprox 550 mg PO given. Upon reassessment, patient felt better and was stable for discharge. Disposition Counseled Patient/Family Regarding: Studies Performed, Diagnosis, Need For Followup, Rx Given - Disposition Referrals: Froy Poole MD [Medical Doctor] - Disposition: HOME/ ROUTINE Disposition Time: 14:20 Condition: STABLE Additional Instructions: FOLLOW UP WITH YOUR DOCTOR IN 1-2 DAYS USE MEDICATIONS NEEDED RETURN TO ER IF SYMPTOMS WORSEN Prescriptions: Cyclobenzaprine [Flexeril] 10 mg PO BID PRN #15 tab PRN Reason: Muscle Spasm Naproxen 375 mg PO BID PRN #20 tablet PRN Reason: pain Instructions: Low Back Pain (DC), Sciatica (DC) Forms: [employer] (Malawian), Work Excuse Print Language: YORUBA - POA Present On Arrival: None - Clinical Impression Clinical Impression: Low back pain, Sciatica - Scribe Statement The provider has reviewed the documentation as recorded by the Neil Langston All medical record entries made by the Neil were at my direction and personally dictated by me. I have reviewed the chart and agree that the record accurately reflects my personal performance of the history, physical exam, medical decision making, and the department course for this patient. I have also personally directed, reviewed, and agree with the discharge instructions and disposition.
--- NOTE | 2018-11-06 14:18 | RAD ---
Date of service: 11/06/2018 PROCEDURE: Radiographs of the Lumbar Spine. HISTORY: r/o fx COMPARISON: CT abdomen and pelvis with contrast performed 11/16/16 FINDINGS: BONES: Alignment appears satisfactory. No listhesis. No acute displaced fracture identified. Multilevel degenerative changes including anterior osteophyte formation. Facet hypertrophy. DISC SPACES: Intervertebral disc space narrowing with vacuum disc phenomenon at L5-S1. OTHER FINDINGS: None. IMPRESSION: Multilevel degenerative changes.
== END 2018-11-06 14:23 | disposition home or self-care (01) ==
LOC: C.ER 12:03
DX: M54.40 Lumbago with sciatica, unspecified side (principal); I10 Essential (primary) hypertension; E78.00 Pure hypercholesterolemia, unspecified; E78.5 Hyperlipidemia, unspecified

== ENCOUNTER 2018-12-19 09:03 | Outpatient (CLI) | payer MEDICAID | END 2018-12-19 09:04 | disposition home or self-care (01) | LOC: C.LAB 09:03 ==